=== PATIENT | female | born 1970 | race Caucasian/White ===

== ENCOUNTER 2023-07-01 20:11 | Emergency (ER) | payer BC ==
[~2023-07-01] VITALS: Ht 165.1 cm; Wt 78.0 kg
[2023-07-02] MEDS ORDERED: TRAMADOL HCL50 MG PO (00:47)
== END 2023-07-02 00:56 | disposition home or self-care (01) ==
LOC: ED 20:11
DX: S42.251A Displaced fracture of greater tuberosity of right humerus, initial encounter for closed fracture (principal); Z88.1 Allergy status to other antibiotic agents; Z98.890 Other specified postprocedural states; W19.XXXA Unspecified fall, initial encounter; Y93.89 Activity, other specified; Y92.000 Kitchen of unspecified non-institutional (private) residence as the place of occurrence of the external cause; Y99.8 Other external cause status

== ENCOUNTER → 2023-07-25 | Outpatient (CLI) | payer BC ==
[~2023-07-25] MED LIST: TRAMADOL HCL50 MG PO
== END | disposition home or self-care (01) ==
LOC: ORTHO 00:47
PROVIDERS: ATTEND Orthopaedic Surgery
DX: S42.251D Displaced fracture of greater tuberosity of right humerus, subsequent encounter for fracture with routine healing (principal); X58.XXXD Exposure to other specified factors, subsequent encounter

== ENCOUNTER → 2023-08-15 | Outpatient (CLI) | payer BC | END | disposition home or self-care (01) | LOC: ORTHO 01:09 | PROVIDERS: ATTEND Orthopaedic Surgery | DX: S42.201D Unspecified fracture of upper end of right humerus, subsequent encounter for fracture with routine healing (principal); X58.XXXD Exposure to other specified factors, subsequent encounter ==

== ENCOUNTER 2024-07-27 13:32 | Emergency (ER) | payer BC ==
[2024-07-27] MEDS ORDERED: Doxycycline Hyclate 100 MG CAP PO ONE (14:05)
[2024-07-27] MEDS ORDERED: VIBRAMYCIN100 MG PO (14:10)
== END 2024-07-27 14:14 | disposition home or self-care (01) ==
LOC: ED 13:32
DX: L02.212 Cutaneous abscess of back [any part, except buttock and flank] (principal); Z88.1 Allergy status to other antibiotic agents; Z98.890 Other specified postprocedural states

== ENCOUNTER 2025-04-11 10:11 | Emergency (ER) | payer OTHER ==
[~2025-04-11] VITALS: Ht 165.1 cm; Wt 82.1 kg
[~2025-04-11 10:11] MED LIST changes: +VIBRAMYCIN100 MG PO
[2025-04-11] MEDS ORDERED: Dexamethasone Sodium Phospha 20 MG/5 ML VIAL IM ONE (11:05)
[2025-04-11] MEDS ORDERED: diazePAM 5 MG TAB PO ONE (11:05)
[2025-04-11] MEDS ORDERED: Ondansetron Hydrochloride 4 MG TAB PO ONE (11:05)
[2025-04-11] MEDS ORDERED: Dexamethasone Sodium Phospha 10 MG/1 ML VIAL IM ONE (11:10)
[2025-04-11] MEDS ORDERED: PERCOCET 5-3251 EACH PO (13:22)
[2025-04-11] MEDS ORDERED: PREDNISONE20 M1 PO (13:22)
[2025-04-11] MEDS ORDERED: Ondansetron4 MG PO (13:22)
[2025-04-11] MEDS ORDERED: METHOCARBAMOL750 M1 PO (13:22)
== END 2025-04-11 13:28 | disposition home or self-care (01) ==
LOC: ED 10:11
DX: M51.16 Intervertebral disc disorders with radiculopathy, lumbar region (principal); Z79.899 Other long term (current) drug therapy; Z88.1 Allergy status to other antibiotic agents; Z98.890 Other specified postprocedural states